=== PATIENT | male | born 1990 | race Caucasian/White ===

== ENCOUNTER 2016-10-16 18:29 | Inpatient (IN) | payer SELFPAY ==
[~2016-10-16] VITALS: Ht 165.1 cm; Wt 57.2 kg
[~2016-10-16 18:29] MED LIST: CGN1X PO; HLD5X PO
[2016-10-16] MEDS ORDERED: SODIUM CHLORIDE 0.9% 1000ML 1,000 ML IV STA (19:01)
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
--- NOTE | 2016-10-16 19:26 | DIAGNOSTIC IMAGING REPORT ---
CHEST ONE VIEW PORTABLE CLINICAL HISTORY: Altered mental status. Weakness. COMPARISON STUDY: No previous studies for comparison. FINDINGS: The cardiac and mediastinal contours are normal. There is no evidence of focal pulmonary consolidation. There is no evidence of failure. No pleural effusions are visualized.[ There is a calcified left apical granuloma. IMPRESSION: No active disease in the chest. Electronically signed by: Isidro Mcdonald M.D. 10/16/2016 7:24 PM Dictated Date/Time: 10/16/2016 7:24 PM
[2016-10-16 19:44] LABS: BASO % 0.2 %; BASO ABS # 0.02 K/uL (0-0.2); COMPLETE YES; EOS % 0.9 %; HEMATOCRIT 44.8 % (42-52); IG% 0.2 %; LYMPH % 24.2 %; LYMPH ABS # 1.96 K/uL (1.2-3.4); MEAN CORPUSCULAR HEMOGLOBIN 31.5 pg (25-34); MEAN CORPUSCULAR HGB CONC 36.6 g/dl (32-36); MONO % 11.6 %; NEUT % 62.9 %; PLATELET COUNT 198 K/uL (130-400); RED BLOOD COUNT 5.21 M/uL (4.7-6.1); WHITE BLOOD COUNT 8.09 K/uL (4.8-10.8)
[2016-10-16 19:54] LABS: PARTIAL THROMBOPLASTIN RATIO 1.1; PROTHROMBIN TIME (PATIENT) 10.8 SECONDS (9.0-12.0)
[2016-10-16] MEDS ORDERED: HALOPERIDOL LACTATE 5 MG/ML 1 ML VIAL IM STA (19:54)
--- NOTE | 2016-10-16 19:57 | DIAGNOSTIC IMAGING REPORT ---
CT HEAD WITHOUT CONTRAST (CT) CLINICAL HISTORY: Altered mental status, Makayla levels of consciousness. Weakness. COMPARISON STUDY: No previous studies for comparison. TECHNIQUE: Axial CT of the brain is performed from the vertex to the skull base. IV contrast was not administered for this examination. CT DOSE: 1228.53 mGy.cm FINDINGS: No intra or extra-axial mass lesions are visualized. There is no CT evidence of acute cortical infarction. There is no evidence of midline shift. There is no acute hemorrhage. No calvarial fractures are visualized. There is no evidence of pathologic ventricular dilatation. There is no evidence of acute sinusitis IMPRESSION: Normal noncontrast head CT. Electronically signed by: Isidro Mcdonald M.D. 10/16/2016 7:55 PM Dictated Date/Time: 10/16/2016 7:54 PM
[2016-10-16 20:00] VITALS: O2SAT 98
[2016-10-16 20:06] LABS: ALT/SGPT 89 U/L (12-78); BLOOD UREA NITROGEN 14 mg/dl (7-18); BUN/CREATININE RATIO 21.6 (10-20); CALCIUM 9.4 mg/dl (8.5-10.1); CARBON DIOXIDE 26 mmol/L (21-32); CHLORIDE 108 mmol/L (98-107); CREATININE 0.64 mg/dl (0.60-1.40); GLUCOSE 98 mg/dl (70-99); POTASSIUM 4.3 mmol/L (3.5-5.1); SODIUM 143 mmol/L (136-145)
[2016-10-16 20:14] LABS: ALKALINE PHOSPHATASE 86 U/L (45-117); AST/SGOT 46 U/L (15-37); CKMB/CK RATIO 1.6 (0-3.0)
[2016-10-16 20:18] LABS: URINE APPEARANCE CLEAR (CLEAR); URINE BILIRUBIN NEG (NEG); URINE COLOR YELLOW; URINE NITRITE NEG (NEG); URINE SPECIFIC GRAVITY 1.021 (1.000-1.030); UROBILINOGEN NEG (NEG)
[2016-10-16 20:21] LABS: ACETAMINOPHEN < 2 ug/ml (10-30)
[2016-10-16 20:31] LABS: MANUAL MICROSCOPIC REQUIRED? NO; REVIEW REQ? NO
[2016-10-16 20:44] LABS: VEN BLD GAS O2 SATURATION 87.9 %; VEN BLOOD GAS BASE EXCESS 2.4 mmol/L
[2016-10-16] MEDS ORDERED: LORAZEPAM 2 MG/ML 1 ML VIAL IV STA (21:02)
[2016-10-16 21:04] LABS: BENZODIAZEPINE, URINE NEG (NEG); COCAINE,URINE NEG (NEG); PHENCYCLIDINE, URINE NEG (NEG)
[2016-10-17] MEDS ORDERED: BENZTROPINE MESYLATE 1 MG TAB PO STA (12:26)
[2016-10-17] MEDS ORDERED: HALOPERIDOL 5 MG TAB PO STA (12:26)
[2016-10-17] MEDS ORDERED: LORAZEPAM 1 MG TAB PO STA (14:22)
[2016-10-17] MEDS ORDERED: HALOPERIDOL 5 MG TAB PO SCH (14:30)
--- NOTE | 2016-10-17 15:52 | EMERGENCY ROOM VISIT NOTE ---
ED Visit Note Pt is a 26 y/o male signed out to me by Dr. Hassan awaiting a bed search. Pt was cleared medically and will needs admission for psychosis. On multiple evals Pt was pacing around room. He was seen by but they took another patient instead and have no beds. He was given haldol per the request of psychiatrist who reviewed his presentation on . Later on re-eval he was given an additional dose of haldol as he continued to pace around the room. He has remained stable but was tachy during this time period and I do feel this to be secondary to his anxiety/polina. If this does not resolve this will need to be looked at further. Pt had no complaints at this time. Pt was signed out to Dr. Carrillo awaiting placement as 16 places have declined him currently. He is not a citizen of the [place] and has no insurance.
--- NOTE | 2016-10-17 17:25 | EMERGENCY ROOM VISIT NOTE ---
ED Visit Note First contact with patient: 17:24 17:22 patient was reevaluated by me. He now seems comfortable. He is still willing to come into the hospital on a voluntary basis. Bed search is still underway. 2320 case was signed off to Dr. Maldonado. We still are awaiting bed placement.
[2016-10-18] MEDS ORDERED: HALOPERIDOL 5 MG TAB PO SCH (07:00)
[2016-10-18] MEDS ORDERED: BENZTROPINE MESYLATE 1 MG TAB PO SCH (07:00)
[2016-10-18] MEDS: BENZTROPINE MESYLATE 1 MG TAB PO SCH ×2 (07:46→18:29)
[2016-10-18] MEDS: HALOPERIDOL 5 MG TAB PO SCH ×2 (07:47→18:29)
--- NOTE | 2016-10-18 07:59 | EMERGENCY ROOM VISIT NOTE ---
ED Visit Note First contact with patient: 23:28 26 yr old psychotic male well known to department following previous mental health evaluations. Initially medically cleared by Dr Damico who through several physicians has now been signed out to me. Sleeping soundly throughout most of night. Awoke late morning to take a shower at which time I gave him his previously prescribed daily medications of Benztropine and Haldol. His QTc previously was 397. He was stable without issue and signed out to Dr Engle awaiting further mental health evaluation and placement.
[2016-10-18] MEDS ORDERED: ACETAMINOPHEN 500 MG TAB PO STA (09:24)
[2016-10-18] MEDS ORDERED: CHLORDIAZEPOXIDE 25 MG CAP PO ONE ×2 (09:30→16:00)
--- NOTE | 2016-10-18 10:02 | Psychiatric Progress Notes ---
Psychiatric Progress Note Date of Service Oct 18, 2016. Notes Patient known to me from previous hospital stay on [facility] for disorganized and sexually inappropriate behavior, pattern of becoming increasingly psychotic ( primarily disorganized) and even suicidal following few days of incarceration. Last episode he had admitted to drinking beer heavily prior to being arrested as missing his son in [facility]. He has a history of suicide attempt in [facility]st [facility] hold as reportedly confused as no one spoke [place] at the correction. 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 Today he is quite warm to the touch and c/o ALEGRE. Review of vital signs reviews persistent tach and some elevated diastolic BP in particularly. Patient will only admit to 1 beer, denies use of other drugs (MJ, cocaine, heroin). He states he wasn' t taking his medications because his brother is crazy and left with them. He is very tearful. States he felt suicidal yesterday and then refers to his son who was a baby when he left him. He has his baseline shuffle and appears to have significant thinning of his hair (friend reported him pulling at it in upset). He denies hearing voices but thoughts are disorganized. He is delusional with nonspecific paranoia. Haldol and Cogentin (discharge medications) were restarted yesterday in ED at my direction. He has no evidence of EPS. Reviewed with patient that he needs to stay in ED for ongoing monitoring and treatment and that I would recommend starting a mood stabilizer for his depression. I do not feel patient could take lithium consistently. I do believe his psychosis is driven by mood disorder given symptoms on recurrence and current MSE, bipolar would certainly explain his sporadic disinhibition, sexually inappropriate behaviors, physical intrussiveness, depression, etc. Will start Depakote ER 500 mg BID after review of baseline CBC. Case reviewed with ED attending as difficult placement and still no bed available on [facility]. Recommend he be covered for ETOH withdrawal and RX headache.
--- NOTE | 2016-10-18 16:04 | EMERGENCY ROOM VISIT NOTE ---
ED Visit Note First contact with patient: 08:02 Patient has been reevaluated on 3 separate occasions throughout the shift. He has had no new complaints. He was pacing around the room began and he notes that he is feeling anxious. Heart rate was up to 110s. Following my discussion with psychiatry earlier in the morning she recommended treating him for withdrawal from alcohol. Initially gave him 25 mg of Librium earlier this morning and started my shift but his second dose now I will give him 50 mg. Patient was updated and he was signed out to Dr. Mulligan awaiting bed search.
--- NOTE | 2016-10-18 23:38 | EMERGENCY ROOM VISIT NOTE ---
ED Visit Note Patient still here. Signed back over to Dr. Maldonado. No issues.
--- NOTE | 2016-10-19 06:51 | EMERGENCY ROOM VISIT NOTE ---
ED Visit Note First contact with patient: 08:02 26 yr old male well known to me and department who has now been in the department for several days due to acute psychosis. Slept on and off throughout evening of 10/18 in to morning of 10/19 while I was monitoring him. Took his regular meds without issue. Stable. Signed out to Dr Engle awaiting bed search.
[2016-10-19] MEDS: HALOPERIDOL 5 MG TAB PO SCH ×2 (07:25→19:03)
[2016-10-19] MEDS: BENZTROPINE MESYLATE 1 MG TAB PO SCH ×2 (07:25→19:03)
[2016-10-19] MEDS ORDERED: DIVALPROEX 500 MG EXTENDED RELEASE TAB PO ONE (10:00)
[2016-10-19] MEDS ORDERED: NURSING VERBAL MED ORDER ONE (11:00)
[2016-10-19 11:11] VITALS: O2SAT 98
[2016-10-19] MEDS ORDERED: SODIUM CHLORIDE 0.65% NA SOLN 45 ML (OCEAN) PRN (11:45)
[2016-10-19] MEDS ORDERED: BISMUTH SUBSALICYLATE PER ML OMNICELL CHARGE PO PRN (11:45)
[2016-10-19] MEDS ORDERED: ALUMINUM/MAGNESIUM SUSP 30 ML UDC PO PRN (11:45)
[2016-10-19] MEDS ORDERED: hydrOXYzine HCL 25 MG TAB PO PRN ×2 (11:45)
[2016-10-19] MEDS ORDERED: ACETAMINOPHEN 325 MG TAB PO PRN (11:45)
[2016-10-19] MEDS ORDERED: MAGNESIUM HYDROXIDE SUSP 30 ML UDC PO PRN (11:45)
[2016-10-19 12:40] VITALS: BP 134/84; PULSE 125; TEMP 36.7; Ht 165.1 cm; Wt 57.2 kg
[2016-10-19] MEDS ORDERED: HALOPERIDOL 5 MG TAB PO PRN (13:30)
[2016-10-19] MEDS ORDERED: CHLORDIAZEPOXIDE 25 MG CAP PO SCH ×2 (13:30→15:00)
[2016-10-19] MEDS ORDERED: BENZTROPINE MESYLATE 1 MG TAB PO PRN (13:45)
[2016-10-19] MEDS ORDERED: LORAZEPAM 1 MG TAB PO PRN ×3 (13:45→15:45)
--- NOTE | 2016-10-19 13:54 | EMERGENCY ROOM VISIT NOTE ---
ED Visit Note First contact with patient: 16:04 Patient is a 26-year-old male who is awaiting bed placement on a 201. He is resting comfortably with no complaints on my evaluation. He is evaluated again by [facility]. and was accepted on a 201.
[2016-10-19] MEDS ORDERED: GABAPENTIN 600 MG TAB PO SCH (15:15)
[2016-10-19] MEDS ORDERED: GABAPENTIN 1200MG LOADING DOSE PO ONE (16:00)
[2016-10-19 16:14] VITALS: BP 129/83; PULSE 124; TEMP 36.5
--- NOTE | 2016-10-19 17:25 | Psychiatric History & Physical ---
History Identifying Data Jitendra Collins is a 26-year-old male. Jitendra Collins was admitted on a 201 voluntary commitment. Patient is admitted from home. The patient was brought to the ED by friend. Information provided by the patient is considered to be unreliable. digital account director service was utilized for interview. Chief Complaint "I was brought here because my friend couldn't sleep". History of Present Illness 24 yo old male. Previous psychiatric hospitalization on this psychiatric unit . He had been very agitated during that hospitalization as well as hypersexual. He stabilized on Haldol. About a week after patient was discharged from this unit he was arrested after he had an altercation with a female and spent 4 months incarcerated. It is unclear as to whether patient took medications while incarcerated. He was discharged from [facility] about 4 days before he presented to Emergency room with a friend. He had not slept in days and was constantly pacing and appearing agitated. Patient has been in the emergency room for the past few days as psychiatric unit was full and an extensive bed search was completed. Patient remains very agitated. He denies any thoughts to harm himself or others but admitted to having suicidal thoughts to Dr. Leong yesterday. He admits to having visual hallucinations with seeing images of Randal. Denies auditory hallucinations. Admits to paranoia with fear that others are going to harm him but not able to be more specific. Patient met with Dr. Leong yesterday and history that she obtained included: Patient known to me from previous hospital stay on [facility] for disorganized and sexually inappropriate behavior, pattern of becoming increasingly psychotic ( primarily disorganized) and even suicidal following few days of incarceration. Last episode he had admitted to drinking beer heavily prior to being arrested as missing his son in [facility]. He has a history of suicide attempt in 1st [facility] hold as reportedly confused as no one spoke Russian at the [facility]. I do speak Russian and have experience performing MSE in Russian. Today he is quite warm to the touch and c/o ALEGRE. Review of vital signs reviews persistent tach and some elevated diastolic BP in particularly. Patient will only admit to 1 beer, denies use of other drugs (MJ, cocaine, heroin). He states he wasn' t taking his medications because his brother is crazy and left with them. He is very tearful. States he felt suicidal yesterday and then refers to his son who was a baby when he left him. He has his baseline shuffle and appears to have significant thinning of his hair (friend reported him pulling at it in upset). He denies hearing voices but thoughts are disorganized. He is delusional with nonspecific paranoia. Haldol and Cogentin (discharge medications) were restarted yesterday in ED at my direction. He has no evidence of EPS. Reviewed with patient that he needs to stay in ED for ongoing monitoring and treatment and that I would recommend starting a mood stabilizer for his depression. I do not feel patient could take lithium consistently. I do believe his psychosis is driven by mood disorder given symptoms on recurrence and current MSE, bipolar would certainly explain his sporadic disinhibition, sexually inappropriate behaviors, physical intrussiveness, depression, etc. Past Psychiatric History Current OP Treatment: no current treatment Prior OP Treatment: no prior treatment Prior Psych Hospitalizations: [facility] (05/2016) Past Medical/Surgical History History of Obesity: No History of HTN: No History of Diabetes: No History of Heart Disease: No History of Dyslipidemia: No History of Concussion/Seizure: No Problem List: Allergies Allergies: Coded Allergies: No Known Allergies (Unverified , 06/09/16) Home Medications Scheduled Benztropine Mesylate (Benztropine Mesylate), 1 MG PO BID Haloperidol (Haloperidol), 5 MG PO BID Family History No pertinent family history Alcohol Use Alcohol Use In Past 12 Months: Yes (Endorses one beer per day) Substance History Substance Use Past 12 Months: Hx of Inhalent Use: No Hx of Organic Substance Use: No Hx of Illegal/Street Drug Use: No Hx of Over the Counter Med Use: No Hx of Prescription Med Use: No Personal History Born in: [facility] Relationship History: Children: Son Review of Systems Psych: denies symptoms other than stated above Constitutional: Very little sleep for couple days prior to presenting to emergency department. Feels tired. Appetite decreased. Cardiovascular: denied GI: denied Neurologic: denied Remainder of 10 body systems also reviewed and denied other than noted above. Examination Physical Examination Patient seen and examined in the emergency department by Dr. Omid Damico on and this was reviewed and accepted as physical examination for this admission. Vital Signs Vital Signs Past 12 Hours Date Time Temp Pulse Resp B/P Pulse Ox O2 Delivery O2 Flow Rate FiO2 10/19/16 12:40 36.7 125 20 134/84 10/19/16 11:11 104 18 121/77 98 Room Air 10/19/16 07:26 105 16 113/62 98 Room Air Mental Examination During interview pt is: guarded Appearance: disheveled Eye contact is: poor Motor behavior is: psychomotor agitation Speech: normal in rate, rhythm & volume Affect: tearful, labile Mood is: dysphoric, anxious Thought process: goal directed Thought content: paranoid (fears others are out to harm him) Suicidal thought are: denied Homicidal thoughts are: denied Hallucinations: visual (sees images of Randal), denies auditory Intelligence estimated to be: average Insight: poor Judgement: poor Impression / Recommendations Impression 26 year old male. Appears to be suffering from an agitated psychotic state and with history of episodic nature of symptoms, hypersexuality and decreased sleep leading up to presentation likely diagnosis of Bipolar disorder, manic episode with psychotic features. With diaphoresis and tremors concerned that patient may be minimizing alcohol usage and in withdrawal. If agitation not improving with alcohol withdrawal protocol would consider discontinuing Haldol and remaining on Depokote due to risk of neuroleptic malignant syndrome. On 10/16 WBC was 8.09 and Creatinine Kinase was 235. On 10/19 Temperature was 36.5 and pulse 124. Recommendations (1) Psychosis 10/19 - Will continue Depakote 500mg BID which was started last evening and ordered Depakote level to be obtained on 10/24/16. -Continue Haldol but consider discontinuing if agitation continues. -Due to acute agitation and disorganized thought process and history of hypersexuality and intrusion into others personal space patient will be placed on 1:1 observation for 24 hours and re-evaluated. -Will seek out psychiatric records from incarceration for collateral history as patient was just released after a four month incarceration. -Will continue to clarify diagnosis Bipolar disorder versus substance induced disorder versus Psychotic disorder (2) Alcohol abuse 10/19 -patient placed on alcohol withdrawal protocol along with Thiamine supplementation. -patient minimizes alcohol use and declines intervention but has a history of past use prior to previous admission and has symptoms compatible with acute withdrawal and will continue to re-evaluate CPT Code Initial Hospital Care: [id number]
[2016-10-19] MEDS ORDERED: INFLUENZA ADMINISTRATION CHARGE ONE (17:30)
[2016-10-19] MEDS ORDERED: INFLUENZA VIRUS QUAD VACCINE 0.5 ML SYR IM. ONE (17:30)
[2016-10-19] MEDS: THIAMINE HCL 100 MG TAB PO SCH (19:02)
[2016-10-19 19:55] VITALS: BP 128/87; PULSE 99; TEMP 36.5
[2016-10-19] MEDS: GABAPENTIN 600MG Q6H DOSE PO SCH (21:02)
[2016-10-19] MEDS: DIVALPROEX 500 MG EXTENDED RELEASE TAB PO SCH (21:02)
[2016-10-20] MEDS: GABAPENTIN 600MG Q6H DOSE PO SCH (04:35)
[2016-10-20 07:00] VITALS: BP_SYST 104; BP_SYST 97; BP_DIAS 61; BP_DIAS 71; PULSE 98; TEMP 36.6
[2016-10-20] MEDS: DIVALPROEX 500 MG EXTENDED RELEASE TAB PO SCH ×2 (09:02→21:18)
[2016-10-20 09:16] VITALS: BP 97/61; PULSE 96; TEMP 36.6
[2016-10-20] MEDS: GABAPENTIN 600MG Q8H DOSE PO SCH ×2 (12:47→20:30)
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
[2016-10-20] MEDS: THIAMINE HCL 100 MG TAB PO SCH (17:54)
[2016-10-21] MEDS: GABAPENTIN 600MG Q8H DOSE PO SCH (04:14)
[2016-10-21 06:52] VITALS: BP_SYST 94; BP_SYST 95; BP_DIAS 62; BP_DIAS 71; PULSE 57; PULSE 80; TEMP 36.7
[2016-10-21] MEDS: DIVALPROEX 500 MG EXTENDED RELEASE TAB PO SCH ×2 (08:17→21:10)
[2016-10-21] MEDS: GABAPENTIN 600MG Q12H DOSE PO SCH (11:40)
--- NOTE | 2016-10-21 14:02 | Psychiatric Progress Notes ---
Progress Note Date of Service Oct 21, 2016. Interval History 26 y/o male from [place] who has a history of psychosis NOS, alcohol and cannabis use disorders diagnosed during hospitalization on our [facility] in 05/2016, who presented to the ER with psychosis shortly after release from senior living, and was admitted voluntarily. Chief Complaint "Very well.". Subjective Patient was seen & assessed interval progress reviewed with Treatment Team. Interview is conducted with the assistance of Tyron Donohue MS3 who speaks fluent indonesian. The patient indicates that his mood is good, that he is sleeping well, and can relax. He denies racing thoughts, aud/vis hallucinations , and oddly interjects that he likes to dance. When asked about his stiff posture he says that his muscles are tight, like when they are cold, but denies restlessness. he says that he feels stronger, and denies SI/HI. He spoke earlier by phone with the person he calls his brother, who he says in coming in in several hours to take him home. He will live with this person, and he will pay for his meds and psychiatric care Review of Systems Constitutional: + problem reported (stiffness) ENT: No dental problems, No hearing loss, No nasal symptoms, No problem reported, No sore throat, No tinnitus, No trouble swallowing, No unusual epistaxis Respiratory: No cough, No dyspnea at rest, No dyspnea on exertion, No hemoptysis, No problem reported, No shortness of breath, No sputum, No wheezing Cardiovascular: No PND, No chest pain, No claudication, No edema, No orthopnea , No palpitations, No problem reported Abdomen: No GI bleeding, No constipation, No diarrhea, No nausea, No pain, No problem reported, No vomiting Musculoskeletal: No calf pain, No joint pain, No muscle pain, No problem reported, No swelling Neurologic: No balance problems, No memory loss, No numbness/tingling, No paralysis, No problem reported, No vertigo, No weakness Psychiatric: No anhedonism, No anxiety, No depression symptoms, No insomnia, No problem reported, No substance abuse Integumentary: No bleeding, No color change, No itch, No new/changing skin lesions, No problem reported, No rash Sleep Information Total Hours of Sleep: 6.25 Meal Information Percent of Breakfast Consumed: 100 Percent of Lunch Consumed: 100 Percent of Dinner Consumed: 100 Mental Status Exam During interview pt is: cooperative (but a limited historian, at times nonsensical) Appearance: disheveled (hair very thin, appears to have pulled some out) Eye contact is: poor Motor behavior is: psychomotor agitation Speech: normal in rate, rhythm & volume Affect: constricted (incongruent with stated mood) Mood is: other ("very well") Thought process: goal directed Thought content: cognitive distortions, other (not reality based at times, says here because a friend needed medical treatment) Suicidal thought are: denied Homicidal thoughts are: denied Hallucinations: denies auditory, denies visual Cognition: other (memory impaired) Insight: poor Judgement: poor Impression The patient has been cooperative with treatment, and has shown appropriate boundaries with others. Insole And Heel Stiffener assisted with today's discussion, and he is denying symptoms at this time. since the patient is an illegal alien, he is not eligible for insurance, and so OP treatment will need to be paid for in [place] which he says his brother can do. Unfortunately, because of this situation , he will likely be seen repeatedly in our hospital and he really has no means to meet his mental health or medical needs. In view of the fact that he has been incarcerated at least twice, and had several psych hospitalizations, it would be prudent to contact INS again in the event there is a pathway to get him back to his country where he can receive services. Since that is never a quick process, we will likely discharge him to the company of this brother if he arrives and is willing to take him home and pay for OP treatment. Plan (1) Psychosis 10/19 - Will continue Depakote 500mg BID which was started last evening and ordered Depakote level to be obtained on 10/24/16. -Continue Haldol but consider discontinuing if agitation continues. -Due to acute agitation and disorganized thought process and history of hypersexuality and intrusion into others personal space patient will be placed on 1:1 observation for 24 hours and re-evaluated. -Will seek out psychiatric records from incarceration for collateral history as patient was just released after a four month incarceration. -Will continue to clarify diagnosis Bipolar disorder versus substance induced disorder versus Psychotic disorder. 10/20 - Continue meds. - Get collateral information from friend, Tyshawn. Patient states he does not have his contact information, but that he lives locally. Get records from senior living to help clarify recent symptoms and assist with diagnosis. - Discontinue 1:1 as has not been aggressive towards others. Did have one episode of trying to touch a staff member, but responded to redirection. Will keep in line of sight of staff due to recent disinhibited behaviors. - Continue medically necessary private room. (2) Alcohol abuse 10/19 -patient placed on alcohol withdrawal protocol along with Thiamine supplementation. -patient minimizes alcohol use and declines intervention but has a history of past use prior to previous admission and has symptoms compatible with acute withdrawal and will continue to re-evaluate 10/20 - not scoring on AWSS, so will discontinue benzo prns. Continue gabapentin taper. Discharge / Aftercare Planning Primary Care Physician: Name: marley Psychiatrist: Name: Dr Ibarra ( has not seen yet) Therapist: Name: marley House Fellow: Name: marley Visit Code E&M Code: 26624 Risk Factors Assessment Male: Yes : No Higher / Fall in social status: No Mental Health Diagnoses: Yes Substance use disorders: Yes Previous attempt: Yes Previous psychiatric stay: Yes Protective Factors Assessment Employed: No Supportive family: No Good rapport with provider: No Data Vital Signs Last 24 Hrs: Date Time Temp Pulse Resp B/P Pulse Ox O2 Delivery O2 Flow Rate FiO2 10/21/16 06:52 36.7 57 16 95/62 80 94/71 Meds Administered Last 24 Hrs: Meds Administered (Past 24Hrs) Medications (Trade) Dose Ordered Sig/Avril Route Start Time Stop Time Status Last Admin Dose Admin Divalproex Sodium (Depakote Extended Rel Tab) 500 mg BID PO 10/19/16 22:00 11/18/16 21:59 10/21/16 08:17 500 MG Gabapentin (Neurontin Tab) 1,200 mg TODAY@1600 ONCE PO 10/19/16 16:00 10/19/16 16:01 DC 10/19/16 17:07 1,200 MG Gabapentin (Neurontin Tab) 600 mg Q6H PO 10/19/16 22:00 10/20/16 04:01 DC 10/20/16 04:35 600 MG Gabapentin (Neurontin Tab) 600 mg Q8H PO 10/20/16 12:00 10/21/16 04:01 DC 10/21/16 04:14 600 MG Gabapentin (Neurontin Tab) 600 mg Q12H PO 10/21/16 12:00 10/22/16 00:01 10/21/16 11:40 600 MG Thiamine HCl (Vitamin B-1 Tab) 100 mg Q24H PO 10/19/16 18:00 11/18/16 17:59 10/20/16 17:54 100 MG Lab Results Last 24 Hrs: 10/16/16 19:25 Red Blood Count 5.21, Mean Corpuscular Volume 86.0, Mean Corpuscular Hemoglobin 31.5, Mean Corpuscular Hemoglobin Concent 36.6, Mean Platelet Volume 10.0, Neutrophils (%) (Auto) 62.9, Lymphocytes (%) (Auto) 24.2, Monocytes (%) (Auto) 11.6, Eosinophils (%) (Auto) 0.9, Basophils (%) (Auto) 0.2, Neutrophils # (Auto ) 5.08, Lymphocytes # (Auto) 1.96, Monocytes # (Auto) 0.94, Eosinophils # (Auto ) 0.07, Basophils # (Auto) 0.02 10/16/16 19:25 Test 10/16/16 19:25 10/16/16 20:05 10/16/16 20:25 10/16/16 20:35 White Blood Count 8.09 K/uL (4.8-10.8) Red Blood Count 5.21 M/uL (4.7-6.1) Hemoglobin 16.4 g/dL (14.0-18.0) Hematocrit 44.8 % (42-52) Mean Corpuscular Volume 86.0 fL (80-100) Mean Corpuscular Hemoglobin 31.5 pg (25-34) Mean Corpuscular Hemoglobin Concent 36.6 g/dl (32-36) Platelet Count 198 K/uL (130-400) Mean Platelet Volume 10.0 fL (7.4-10.4) Neutrophils (%) (Auto) 62.9 % Lymphocytes (%) (Auto) 24.2 % Monocytes (%) (Auto) 11.6 % Eosinophils (%) (Auto) 0.9 % Basophils (%) (Auto) 0.2 % Neutrophils # (Auto) 5.08 K/uL (1.4-6.5) Lymphocytes # (Auto) 1.96 K/uL (1.2-3.4) Monocytes # (Auto) 0.94 K/uL (0.11-0.59) Eosinophils # (Auto) 0.07 K/uL (0-0.5) Basophils # (Auto) 0.02 K/uL (0-0.2) RDW Standard Deviation 40.1 fL (36.4-46.3) RDW Coefficient of Variation 12.7 % (11.5-14.5) Immature Granulocyte % (Auto) 0.2 % Immature Granulocyte # (Auto) 0.02 K/uL (0.00-0.02) Prothrombin Time 10.8 SECONDS (9.0-12.0) Prothromb Time International Ratio 1.0 (0.9-1.1) Activated Partial Thromboplast Time 28.4 SECONDS (21.0-31.0) Partial Thromboplastin Ratio 1.1 Anion Gap 9.0 mmol/L (3-11) Est Creatinine Clear Calc Drug Dose 143.2 ml/min Estimated GFR () > 150.0 Estimated GFR (Non- 137.0 BUN/Creatinine Ratio 21.6 (10-20) Osmolality 296 mOsm/kg (280-300) Calcium Level 9.4 mg/dl (8.5-10.1) Magnesium Level 2.0 mg/dl (1.8-2.4) Ammonia 32.0 umol/L (11-32) Total Creatine Kinase 235 U/L (39-308) Creatine Kinase MB 3.8 ng/ml (0.5-3.6) Creatine Kinase MB Ratio 1.6 (0-3.0) Troponin I < 0.015 ng/ml (0-0.045) Lipase 197 U/L (73-393) Thyroid Stimulating Hormone (TSH) 1.360 uIu/ml (0.300-4.500) Free Thyroxine 0.91 ng/dl (0.80-1.60) Salicylates Level < 1.7 mg/dl (2.8-20) Acetaminophen Level < 2 ug/ml (10-30) Ethyl Alcohol mg/dL < 3.0 mg/dl (0-3) Urine Color YELLOW Urine Appearance CLEAR (CLEAR) Urine pH 6.0 (4.5-7.5) Urine Specific [place] 1.021 (1.000-1.030) Urine Protein NEG (NEG) Urine Glucose (UA) NEG (NEG) Urine Ketones NEG (NEG) Urine Occult Blood NEG (NEG) Urine Nitrite NEG (NEG) Urine Bilirubin NEG (NEG) Urine Urobilinogen NEG (NEG) Urine Leukocyte Esterase NEG (NEG) Urine Opiates Screen NEG (NEG) Urine Methadone, Qualitative NEG (NEG) Urine Barbiturates NEG (NEG) Urine Phencyclidine (PCP) Level NEG (NEG) Ur Amphetamine/Methamphetamine NEG (NEG) MDMA (Ecstasy) Screen NEG (NEG) Urine Benzodiazepines Screen NEG (NEG) Urine Cocaine Metabolite NEG (NEG) Urine Marijuana (THC) NEG (NEG) Bedside Glucose 104 mg/dl (70-99) Venous Blood pH 7.44 (7.36-7.41) Venous Blood Partial Pressure CO2 40 mmHg (38.0-50.0) Venous Blood Partial Pressure O2 53 mmHg Venous Blood HCO3 27 mmol/L Venous Blood Oxygen Saturation 87.9 % Venous Blood Base Excess 2.4 mmol/L Test 10/17/16 17:35 10/20/16 08:30 Rapid Plasma Reagin NONREACTIVE (NONREACT) Total Bilirubin 0.7 mg/dl (0.2-1) Direct Bilirubin 0.2 mg/dl (0-0.2) Aspartate Amino Transf (AST/SGOT) 31 U/L (15-37) Alanine Aminotransferase (ALT/SGPT) 65 U/L (12-78) Alkaline Phosphatase 79 U/L (45-117) Total Protein 7.6 gm/dl (6.4-8.2) Albumin 4.1 gm/dl (3.4-5.0)
[2016-10-21] MEDS ORDERED: DPKSR500 PO (14:04)
[2016-10-21] MEDS ORDERED: CGN1X PO (14:04)
--- NOTE | 2016-10-21 14:05 | Discharge Instructions ---
Discharge Instructions Admission Reason for Admission: Schizoaffective Disorder W/Bipolar Features Discharge Discharge Diagnosis / Problem: Psychosis NOS Discharge Goals Goal(s): Decrease discomfort, Improve disease control, Prevent Disease Progression Activity Recommendations Activity Limitations: resume your previous activity . Instructions / Follow-Up Instructions / Follow-Up . SPECIAL CARE INSTRUCTIONS: 1. Follow through with your scheduled aftercare appointments. If unable to keep an appointment, please call to reschedule. 2. Take your medication only as prescribed. Medication should not be changed or stopped without the approval of your doctor. In the event of worsening symptoms or concerns about side effects, contact your doctor immediately. 3. Utilize new healthy coping skills, anger management skills, and stress management skills learned during your hospitalization. Journal feelings and process them with a support person. Identify stressors or situations that may result in relapse, deterioration or inappropriate behaviors and develop a plan to deal with those issues. 4. If your coping skills are ineffective and you are in crisis, contact your outpatient providers for direction. If unable to reach your providers, please call the CAN HELP LINE AT or go to the closest Emergency Room. 5. Avoid alcohol and un-prescribed drugs. 6. You have been provided with the Mental Health Advance Directives Pamphlet for your review. AFTERCARE APPOINTMENTS: * Please call your insurance company prior to your scheduled appointment to confirm your aftercare providers are covered. Take your insurance information to your appointments. . Diet Recommendations Diet(s): Regular Diet Medical Emergencies . Who to Call and When: Medical Emergencies: If at any time you feel your situation is an emergency, please call 911 immediately. . . "Provider Documentation" section prepared by More Wang. VTE Core Measure Inpt VTE Proph given/why not?: Treatment not indicated
[2016-10-21] MEDS: THIAMINE HCL 100 MG TAB PO SCH (17:43)
[2016-10-22] MEDS: GABAPENTIN 600MG Q12H DOSE PO SCH (00:30)
[2016-10-22 07:00] VITALS: BP_SYST 116; BP_SYST 117; BP_DIAS 68; BP_DIAS 77; PULSE 83; PULSE 84; TEMP 36.3
[2016-10-22] MEDS ORDERED: GABAPENTIN 600MG X1 DOSE PO SCH (09:00)
[2016-10-22] MEDS: DIVALPROEX 500 MG EXTENDED RELEASE TAB PO SCH ×2 (09:14→21:52)
[2016-10-22] MEDS ORDERED: BENZTROPINE MESYLATE 1 MG TAB PO ONE (11:25)
--- NOTE | 2016-10-22 12:12 | Psychiatric Progress Notes ---
Progress Note Date of Service Oct 22, 2016. Interval History 26 y/o male from [place] who has a history of psychosis NOS, alcohol and cannabis use disorders diagnosed during hospitalization on our [facility] in 05/2016, who presented to the ER with psychosis shortly after release from [facility], and was admitted voluntarily. Chief Complaint "Very well thank God". Subjective Patient was seen & assessed interval progress reviewed with Treatment Team. Staff report he had an unwitnessed fall off the exercise bike last night, without injury. He had a meeting with friends yesterday and they stated they cannot financially support him and all agreed he should return to [facility] to live with family there. He had an episode of tearfulness this morning, saying he wanted to go home, but improved with staff support. He was seen today with the video lang interpreter. He reports good mood, and denies SI, HI, hallucinations and paranoia. He thinks medications are helping, although he does report some stiffness. He has not gotten Cogentin which is ordered prn. He reports good sleep and appetite. He is trying to exercise by walking the halls. He is looking forward to returning to [facility], and plans to stay locally with his brother until his flight home. He denies racing thoughts, confusion or disorganized thoughts, but did answer with unrelated information once, saying " I want to be a police" when asked if he had questions about his treatment here, and also gave one answer that the lang interpreter could not understand even after repeating it several times. Sleep Information Total Hours of Sleep: 2.25 Meal Information Percent of Breakfast Consumed: 50 Percent of Lunch Consumed: 100 Percent of Dinner Consumed: 100 Mental Status Exam During interview pt is: alert and oriented, cooperative Appearance: appropriately dressed, appropriately groomed Eye contact is: fair Motor behavior is: other (stiff UEs) Speech: normal in rate, rhythm & volume Affect: constricted (incongruent with stated mood) Mood is: other ("very well") Thought process: goal directed Thought content: cognitive distortions, other (not reality based at times, says here because a friend needed medical treatment) Suicidal thought are: denied Homicidal thoughts are: denied Hallucinations: denies auditory, denies visual Cognition: other (memory impaired) Insight: poor Judgement: poor Impression The patient has been cooperative with treatment, and has shown appropriate boundaries with others. Housekeeper Head assisted with today's discussion, and he is denying symptoms at this time. since the patient is an illegal alien, he is not eligible for insurance, and so OP treatment will need to be paid for in [place] which he says his brother can do. Unfortunately, because of this situation , he will likely be seen repeatedly in our hospital and he really has no means to meet his mental health or medical needs. In view of the fact that he has been incarcerated at least twice, and had several psych hospitalizations, it would be prudent to contact INS again in the event there is a pathway to get him back to his country where he can receive services. Since that is never a quick process, we will likely discharge him to the company of this brother if he arrives and is willing to take him home and pay for OP treatment. Plan (1) Psychosis 10/19 - Will continue Depakote 500mg BID which was started last evening and ordered Depakote level to be obtained on 10/24/16. -Continue Haldol but consider discontinuing if agitation continues. -Due to acute agitation and disorganized thought process and history of hypersexuality and intrusion into others personal space patient will be placed on 1:1 observation for 24 hours and re-evaluated. -Will seek out psychiatric records from incarceration for collateral history as patient was just released after a four month incarceration. -Will continue to clarify diagnosis Bipolar disorder versus substance induced disorder versus Psychotic disorder. 10/20 - Continue meds. - Get collateral information from friend, Tyshawn. Patient states he does not have his contact information, but that he lives locally. Get records from [facility] to help clarify recent symptoms and assist with diagnosis. - Discontinue 1:1 as has not been aggressive towards others. Did have one episode of trying to touch a staff member, but responded to redirection. Will keep in line of sight of staff due to recent disinhibited behaviors. - Continue medically necessary private room. 10/22 - Much improved. Some stiffening, will try 1 time dose of Cogentin to see if that helps. - Discontinue MNPR as patient has been in good behavioral control and psychosis is improved. - Will move Depakote level to tomorrow, although one day early, as he is not likely to follow up with lab work after discharge due to cost barrier and lack of outpatient physician. (2) Alcohol abuse 10/19 -patient placed on alcohol withdrawal protocol along with Thiamine supplementation. -patient minimizes alcohol use and declines intervention but has a history of past use prior to previous admission and has symptoms compatible with acute withdrawal and will continue to re-evaluate 10/20 - not scoring on AWSS, so will discontinue benzo prns. Continue gabapentin taper. Discharge / Aftercare Planning Primary Care Physician: Name: marley Psychiatrist: Name: Dr Ibarra ( has not seen yet) Therapist: Name: marley Visual Coordinator: Name: marley Visit Code E&M Code: 18944 Risk Factors Assessment Male: Yes : No Higher / Fall in social status: No Mental Health Diagnoses: Yes Substance use disorders: Yes Previous attempt: Yes Previous psychiatric stay: Yes Protective Factors Assessment Employed: No Supportive family: No Good rapport with provider: No Data Vital Signs Last 24 Hrs: Date Time Temp Pulse Resp B/P Pulse Ox O2 Delivery O2 Flow Rate FiO2 10/22/16 07:00 36.3 84 18 117/77 83 116/68 Meds Administered Last 24 Hrs: Meds Administered (Past 24Hrs) Medications (Trade) Dose Ordered Sig/Avril Route Start Time Stop Time Status Last Admin Dose Admin Gabapentin (Neurontin Tab) 600 mg Q8H PO 10/20/16 12:00 10/21/16 04:01 DC 10/21/16 04:14 600 MG Gabapentin (Neurontin Tab) 600 mg Q12H PO 10/21/16 12:00 10/22/16 00:01 DC 10/21/16 11:40 600 MG Gabapentin (Neurontin Tab) 600 mg TODAY@0900 PO 10/22/16 09:00 10/22/16 09:01 DC 10/22/16 09:14 600 MG
[2016-10-22] MEDS: THIAMINE HCL 100 MG TAB PO SCH (18:15)
[2016-10-22] MEDS ORDERED: CHLORDIAZEPOXIDE 10 MG CAP PO SCH (21:00)
[2016-10-23 06:51] VITALS: BP 96/65; PULSE 84; TEMP 36.4
[2016-10-23] MEDS ORDERED: BENZTROPINE MESYLATE 1 MG TAB PO SCH (09:00)
[2016-10-23] MEDS: DIVALPROEX 500 MG EXTENDED RELEASE TAB PO SCH (09:05)
--- NOTE | 2016-10-23 09:25 | Discharge Summary ---
Discharge Summary Dates / Dispostion Admission Date / Time: Oct 19, 2016 at 10:56 Discharge Date: Oct 21, 2016 Discharge Disposition: Home Principal Diagnosis (1) Psychosis Discharge / Aftercare Planning Primary Care Physician: Name: marley Psychiatrist: Name: Dr Ibarra ( has not seen yet) Therapist: Name: marley Reinforced Ironworker: Name: marley Medication Reconciliation New Medications: Divalproex Sodium (Divalproex Sodium ER) 500 Mg Tabcr 500 MG PO BID, #60 TAB Continued Medications: Benztropine Mesylate (Benztropine Mesylate) 1 Mg Tab 1 MG PO BID for stiffness/EPS, #60 TABS (This prescription has been renewed) Discontinued Medications: Haloperidol (Haloperidol) 5 Mg Tab 5 MG PO BID Admission HPI Per the Admitting provider: 24 yo old male. Previous psychiatric hospitalization on this psychiatric unit . He had been very agitated during that hospitalization as well as hypersexual. He stabilized on Haldol. About a week after patient was discharged from this unit he was arrested after he had an altercation with a female and spent 4 months incarcerated. It is unclear as to whether patient took medications while incarcerated. He was discharged from custodial about 4 days before he presented to Emergency room with a friend. He had not slept in days and was constantly pacing and appearing agitated. Patient has been in the emergency room for the past few days as psychiatric unit was full and an extensive bed search was completed. Patient remains very agitated. He denies any thoughts to harm himself or others but admitted to having suicidal thoughts to Dr. Leong yesterday. He admits to having visual hallucinations with seeing images of Randal. Denies auditory hallucinations. Admits to paranoia with fear that others are going to harm him but not able to be more specific. Patient met with Dr. Leong yesterday and history that she obtained included: Patient known to me from previous hospital stay on [facility] for disorganized and sexually inappropriate behavior, pattern of becoming increasingly psychotic ( primarily disorganized) and even suicidal following few days of incarceration. Last episode he had admitted to drinking beer heavily prior to being arrested as missing his son in [facility]. He has a history of suicide attempt in 1st alf hold as reportedly confused as no one spoke Dutch at the custodial. I do speak Dutch and have experience performing MSE in Dutch. Today he is quite warm to the touch and c/o ALEGRE. Review of vital signs reviews persistent tach and some elevated diastolic BP in particularly. Patient will only admit to 1 beer, denies use of other drugs (MJ, cocaine, heroin). He states he wasn' t taking his medications because his brother is crazy and left with them. He is very tearful. States he felt suicidal yesterday and then refers to his son who was a baby when he left him. He has his baseline shuffle and appears to have significant thinning of his hair (friend reported him pulling at it in upset). He denies hearing voices but thoughts are disorganized. He is delusional with nonspecific paranoia. Haldol and Cogentin (discharge medications) were restarted yesterday in ED at my direction. He has no evidence of EPS. Reviewed with patient that he needs to stay in ED for ongoing monitoring and treatment and that I would recommend starting a mood stabilizer for his depression. I do not feel patient could take lithium consistently. I do believe his psychosis is driven by mood disorder given symptoms on recurrence and current MSE, bipolar would certainly explain his sporadic disinhibition, sexually inappropriate behaviors, physical intrussiveness, depression, etc. Hospital Course (1) Psychosis 10/19 - Will continue Depakote 500mg BID which was started last evening and ordered Depakote level to be obtained on 10/24/16. -Continue Haldol but consider discontinuing if agitation continues. -Due to acute agitation and disorganized thought process and history of hypersexuality and intrusion into others personal space patient will be placed on 1:1 observation for 24 hours and re-evaluated. -Will seek out psychiatric records from incarceration for collateral history as patient was just released after a four month incarceration. -Will continue to clarify diagnosis Bipolar disorder versus substance induced disorder versus Psychotic disorder. 10/20 - Continue meds. - Get collateral information from friend, Tyshawn. Patient states he does not have his contact information, but that he lives locally. Get records from custodial to help clarify recent symptoms and assist with diagnosis. - Discontinue 1:1 as has not been aggressive towards others. Did have one episode of trying to touch a staff member, but responded to redirection. Will keep in line of sight of staff due to recent disinhibited behaviors. - Continue medically necessary private room. 10/22 - Much improved. Some stiffening, will try 1 time dose of Cogentin to see if that helps. - Discontinue MNPR as patient has been in good behavioral control and psychosis is improved. - Will move Depakote level to tomorrow, although one day early, as he is not likely to follow up with lab work after discharge due to cost barrier and lack of outpatient physician. (2) Alcohol abuse 10/19 -patient placed on alcohol withdrawal protocol along with Thiamine supplementation. -patient minimizes alcohol use and declines intervention but has a history of past use prior to previous admission and has symptoms compatible with acute withdrawal and will continue to re-evaluate 10/20 - not scoring on AWSS, so will discontinue benzo prns. Continue gabapentin taper. Risk Factors Assessment Male: Yes : No Higher / Fall in social status: No Mental Health Diagnoses: Yes Substance use disorders: Yes Previous attempt: Yes Previous psychiatric stay: Yes Protective Factors Assessment Employed: No Supportive family: No Good rapport with provider: No Day of Discharge Assessment COURSE OF HOSPITALIZATION: During the patient's 4 day stay he was stabilized on cogentin and depakote. Although he appeared rather stiff and parkinsonoid he denied this. A translater was used throughout his stay, either [facility], or Dutch speaking staff. Initially, it appeared that his family would continue to have him stay with them locally, but through a friend of the family who spoke Vincentian, we learned that the family was unable to continue to care for him here in the and were working toward buying him a ticket home to [facility] as soon as possible. They agreed to assist him to get his prescriptions filled for the remainder of his time here, and a coupon will be provided to help reduce costs. He is a known illegal alien. During his stay he initially had difficulty remaining appropriate with female peers and so was initially on 1:1, and then line of vision, and ultimately just on a MNPR. He was progressively more appropriate, denying hallucinations of any kind or SI/ HI. DAY OF DISCHARGE ASSESSMENT: Through an stone repairer with [facility], the patient says that his mood is good and he is looking forward to going home to [facility]. He denies physical complaints including stiffness. he says that he feels strong and able to go home today. He understands that he will be given a coupon to defray costs for his meds. He denies aud/vis hallucinations or SI/ HI. He is casually and appropriately dressed and groomed, is alert and cooperative. His behavior is appropriate, affect restricted. Thoughts are organized in response to questions, and denying thought disorder. Memory appears to be intact per conversation. Insight and judgement are improved over admission. Laboratory 10/16/16 19:25 Red Blood Count 5.21, Mean Corpuscular Volume 86.0, Mean Corpuscular Hemoglobin 31.5, Mean Corpuscular Hemoglobin Concent 36.6, Mean Platelet Volume 10.0, Neutrophils (%) (Auto) 62.9, Lymphocytes (%) (Auto) 24.2, Monocytes (%) (Auto) 11.6, Eosinophils (%) (Auto) 0.9, Basophils (%) (Auto) 0.2, Neutrophils # (Auto ) 5.08, Lymphocytes # (Auto) 1.96, Monocytes # (Auto) 0.94, Eosinophils # (Auto ) 0.07, Basophils # (Auto) 0.02 10/16/16 19:25 Test 10/16/16 19:25 10/16/16 20:05 10/16/16 20:25 10/16/16 20:35 White Blood Count 8.09 K/uL (4.8-10.8) Red Blood Count 5.21 M/uL (4.7-6.1) Hemoglobin 16.4 g/dL (14.0-18.0) Hematocrit 44.8 % (42-52) Mean Corpuscular Volume 86.0 fL (80-100) Mean Corpuscular Hemoglobin 31.5 pg (25-34) Mean Corpuscular Hemoglobin Concent 36.6 g/dl (32-36) Platelet Count 198 K/uL (130-400) Mean Platelet Volume 10.0 fL (7.4-10.4) Neutrophils (%) (Auto) 62.9 % Lymphocytes (%) (Auto) 24.2 % Monocytes (%) (Auto) 11.6 % Eosinophils (%) (Auto) 0.9 % Basophils (%) (Auto) 0.2 % Neutrophils # (Auto) 5.08 K/uL (1.4-6.5) Lymphocytes # (Auto) 1.96 K/uL (1.2-3.4) Monocytes # (Auto) 0.94 K/uL (0.11-0.59) Eosinophils # (Auto) 0.07 K/uL (0-0.5) Basophils # (Auto) 0.02 K/uL (0-0.2) RDW Standard Deviation 40.1 fL (36.4-46.3) RDW Coefficient of Variation 12.7 % (11.5-14.5) Immature Granulocyte % (Auto) 0.2 % Immature Granulocyte # (Auto) 0.02 K/uL (0.00-0.02) Prothrombin Time 10.8 SECONDS (9.0-12.0) Prothromb Time International Ratio 1.0 (0.9-1.1) Activated Partial Thromboplast Time 28.4 SECONDS (21.0-31.0) Partial Thromboplastin Ratio 1.1 Anion Gap 9.0 mmol/L (3-11) Est Creatinine Clear Calc Drug Dose 143.2 ml/min Estimated GFR () > 150.0 Estimated GFR (Non- 137.0 BUN/Creatinine Ratio 21.6 (10-20) Osmolality 296 mOsm/kg (280-300) Calcium Level 9.4 mg/dl (8.5-10.1) Magnesium Level 2.0 mg/dl (1.8-2.4) Ammonia 32.0 umol/L (11-32) Total Creatine Kinase 235 U/L (39-308) Creatine Kinase MB 3.8 ng/ml (0.5-3.6) Creatine Kinase MB Ratio 1.6 (0-3.0) Troponin I < 0.015 ng/ml (0-0.045) Lipase 197 U/L (73-393) Thyroid Stimulating Hormone (TSH) 1.360 uIu/ml (0.300-4.500) Free Thyroxine 0.91 ng/dl (0.80-1.60) Salicylates Level < 1.7 mg/dl (2.8-20) Acetaminophen Level < 2 ug/ml (10-30) Ethyl Alcohol mg/dL < 3.0 mg/dl (0-3) Urine Color YELLOW Urine Appearance CLEAR (CLEAR) Urine pH 6.0 (4.5-7.5) Urine Specific [place] 1.021 (1.000-1.030) Urine Protein NEG (NEG) Urine Glucose (UA) NEG (NEG) Urine Ketones NEG (NEG) Urine Occult Blood NEG (NEG) Urine Nitrite NEG (NEG) Urine Bilirubin NEG (NEG) Urine Urobilinogen NEG (NEG) Urine Leukocyte Esterase NEG (NEG) Urine Opiates Screen NEG (NEG) Urine Methadone, Qualitative NEG (NEG) Urine Barbiturates NEG (NEG) Urine Phencyclidine (PCP) Level NEG (NEG) Ur Amphetamine/Methamphetamine NEG (NEG) MDMA (Ecstasy) Screen NEG (NEG) Urine Benzodiazepines Screen NEG (NEG) Urine Cocaine Metabolite NEG (NEG) Urine Marijuana (THC) NEG (NEG) Bedside Glucose 104 mg/dl (70-99) Venous Blood pH 7.44 (7.36-7.41) Venous Blood Partial Pressure CO2 40 mmHg (38.0-50.0) Venous Blood Partial Pressure O2 53 mmHg Venous Blood HCO3 27 mmol/L Venous Blood Oxygen Saturation 87.9 % Venous Blood Base Excess 2.4 mmol/L Test 10/17/16 17:35 10/20/16 08:30 10/23/16 08:15 Rapid Plasma Reagin NONREACTIVE (NONREACT) Total Bilirubin 0.7 mg/dl (0.2-1) Direct Bilirubin 0.2 mg/dl (0-0.2) Aspartate Amino Transf (AST/SGOT) 31 U/L (15-37) Alanine Aminotransferase (ALT/SGPT) 65 U/L (12-78) Alkaline Phosphatase 79 U/L (45-117) Total Protein 7.6 gm/dl (6.4-8.2) Albumin 4.1 gm/dl (3.4-5.0) Valproic Acid (Depakene) Level 61 mcg/ml (50-100) Total Time Total Time Spent (min): Greater than 30 minutes Total Time Included: examination of the patient, discharge planning, medication reconciliation, communication with other providers Discharge Instructions Activity Recommendations: resume regular activity Tobacco Cessation at Discharge FDA approved Prescription: non-smoker
--- NOTE | 2016-11-17 15:16 | EMERGENCY ROOM VISIT NOTE ---
ED Visit Note First contact with patient: 01:30 I received this patient signout at the change of shift from Dr. Damico, pending mental health evaluation and placement. The patient had received IV Haldol and Ativan prior to my assumption of care. He slept. A bed search continues as the patient is not a [place] citizen and has no health insurance. This will likely be difficult to establish. The patient was signed out to Dr. Engle at the change of shift.
== END 2016-10-23 13:00 | disposition home or self-care (01) | DRG 885 ==
LOC: MERGE 18:32 → C.EDB 18:32 → C.MHU 10-19 10:56
PROVIDERS: ADMIT Psychiatry & Neurology Psychiatry; ATTEND Psychiatry & Neurology Psychiatry
DX: F29 Unspecified psychosis not due to a substance or known physiological condition (principal); F10.10 Alcohol abuse, uncomplicated; Z79.899 Other long term (current) drug therapy; R41.82 Altered mental status, unspecified